=== PATIENT | male | born 1950 | race Caucasian/White ===

== ENCOUNTER → 2018-12-08 | Outpatient (CLI) | payer OTHER ==
[~2018-12-08] MED LIST: ASPIRIN EC81 M1; CRESTOR5 MG; FELODIPINE ER10 MG PO; FELODIPINE ER2.5 MG PO; GLUCOPHAGE XR500 MG PO; K-DUR 20 MEQ T20 MEQ PO; LISINOPRIL40 MG PO; VITAMIN B-12500 MCG PO
[2018-12-08 09:39] LABS: HEMATOCRIT 36.7 % (42.0-52.0); HEMOGLOBIN 12.7 gm/dL (14.0-18.0); MCH 33.5 pg (26.0-34.0); MCHC 34.6 g/dL (28.0-37.0); MCV 96.8 fL (80.0-100.0); PLATELET COUNT 319 thou/uL (150-400); RBC 3.79 mil/uL (4.50-6.00); RDW 16.1 % (10.5-14.5); WBC 6.7 thou/uL (4.0-11.0)
[2018-12-08 09:48] LABS: CALCIUM 9.5 mg/dL (8.5-10.1); CREATININE 1.5 mg/dL (0.7-1.3); POTASSIUM 3.2 mmol/L (3.5-5.1)
[2018-12-08 09:54] LABS: ALBUMIN 3.1 g/dL (3.4-5.0); TOTAL BILIRUBIN 0.9 mg/dL (<0.1-1.0); TOTAL PROTEIN 6.6 g/dL (6.4-8.2)
[2018-12-08 10:10] LABS: ABSOLUTE NEUTROPHILS 4.8 thou/uL (1.4-8.2); ANISOCYTOSIS 1+; PLATELET ESTIMATE NORMAL
[2018-12-08 10:15] VITALS: BP 86/53
[2018-12-08 11:15] VITALS: BP 118/68
--- NOTE | 2018-12-08 15:17 | NUR ---
IN FOR IV FLUIDS FOR DEHYDRATION. PATIENT STATED HAS NOT BEEN EATING OR DRINKING VERY MUCH FOR 3 WEEKS AND HAS LOST 33 POUNDS, PASSED OUT 3 DAYS AGO AT HOME IN THE KITCHEN. DENIED INJURY. BP 86/53 UPON ARRIVAL TO CLINIC. CXR AND LABS DONE PRIOR TO ARRIVAL. INFUSED 1 LITER NS IV WIDE OPEN. SPOKE WITH MAIKEL GODDARD AT DR. JAVIER'S OFFICE TO REPORT K+ LEVEL 3.2, PATIENT'S REPORT OF PASSING OUT AT HOME, AND LOW BP. AFTER INFUSION COMPLETED BP 118/68, TAKEN MANUALLY. MEI GOMEZ, EVALUATOR TRANSFER STUDENTS TO CALL OUT PRESCRIPTION FOR POTASSIUM SUPPLEMENT AND WANTS TO SEE PATIENT IN 1 WEEK OR SOONER IF GETS WORSE. ALL INSTRUCTIONS GIVEN TO PATIENT AND DTR PRASHANT. PATIENT'S DTR STATED SHE IS HELPING HER FATHER WITH MEALS AND WILL CHECK ON HIM FREQUENTLY THIS WEEK. ENCOURAGED PATIENT TO TAKE HIS BP BEFORE TAKING HIS BP MEDS AND TO NOTIFY DRJoe IF BP CONTINUES TO BE LOW, HOLD BP MEDS UNTIL SPEAKING TO STATED UNDERSTANDING. DISMISSED IN STABLE CONDITION.
== END ==
LOC: RAD 09:10
PROVIDERS: Nurse Practitioner
DX: E86.0 Dehydration (principal); R06.02 Shortness of breath; R53.83 Other fatigue; R63.4 Abnormal weight loss; R50.9 Fever, unspecified; R97.20 Elevated prostate specific antigen [PSA]

== ENCOUNTER → 2018-12-29 | Outpatient (CLI) | payer OTHER ==
[~2018-12-29] MED LIST changes: -ASPIRIN EC81 M1; +ASPIRIN EC81 M1 PO; +LISINOPRIL2.5 MG PO
== END ==
LOC: ULTRA 15:33
DX: R92.8 Other abnormal and inconclusive findings on diagnostic imaging of breast (principal); R63.4 Abnormal weight loss; I70.0 Atherosclerosis of aorta; I25.10 Atherosclerotic heart disease of native coronary artery without angina pectoris; N28.1 Cyst of kidney, acquired; E11.9 Type 2 diabetes mellitus without complications; Z87.891 Personal history of nicotine dependence; Z79.84 Long term (current) use of oral hypoglycemic drugs

== ENCOUNTER → 2018-12-29 | Outpatient (CLI) | payer OTHER ==
[~2018-12-29] VITALS: Ht 177.8 cm; Wt 83.9 kg
--- NOTE | 2019-01-01 07:37 | P ---
[facility] [place] [address] [place] [address] PROCEDURE REPORT Name: JESSIE GALAN [facility] [id number] Admission: 12/29/18 ������������������ Attend Phys: Jed Chamorro MD Discharge: ������������������ Date of : 50 Report #: [id number] THIS REPORT FOR: //name// CC: Jed Zapata MD BRIEF HISTORY: The patient is a 68-year-old male for his first average risk screening colonoscopy. PREOPERATIVE DIAGNOSIS: Average risk screening colonoscopy. POSTOPERATIVE DIAGNOSES: 1. Colon polyps. 2. Rectal polyps. 3. Polypoid lesion, anal verge. 4. Moderate diverticulosis coli, right and left colon. MEDICATIONS: Deep sedation with propofol per anesthesia. SPECIMENS: 1. Distal ascending colon polyp. 2. Polyp at 35 cm. 3. Rectal polyp. 4. Biopsies of polypoid lesion, anal verge. ESTIMATED BLOOD LOSS: 3 mL. PROCEDURE: Colonoscopy to cecum and terminal ileum with sterile polypectomy and biopsy. FINDINGS: Prior to propofol sedation, procedure of colonoscopy discussed with the patient as well as potential risks and its complications. He indicates he understands and desires to proceed. With the patient in the left lateral decubitus position, digital examination was completed, which revealed no abnormalities. Subsequently, the Olympus video colonoscope was introduced in the rectum and advanced under direct vision to the cecum. Done with minimal difficulty. The cecum was identified by the ileocecal valve and the appendiceal orifice. I was able to visualize the distal segment of the terminal ileum, which was inspected and noted to be unremarkable. At that point, the scope was slowly withdrawn and careful circumferential views obtained including retroflexing the scope in the ascending colon. Upon slow withdrawal of the scope, the prep was good. The mucosa was within normal limits, normal vascular pattern and normal light reflex. As we withdrew the scope, the mucosa was inspected and was within normal limits, normal vascular pattern and normal light reflex. As we withdrew the scope, he was found to have [facility] [address] [place] [address] PROCEDURE REPORT Name: JESSIE GALAN Room #: REG [facility] [id number] Admission: 12/29/18 ������������������ Attend Phys: Jed Chamorro MD Discharge: ������������������ Date of : 50 Report #: [id number] 4-5 mm sessile polyp in the distal ascending colon that was removed by cold snare polypectomy and recovered. The scope was further withdrawn and a few scattered diverticula were seen in the ascending colon. No additional abnormalities were noted until the left colon was reached. He was noted to have moderate sigmoid diverticular disease. He was also noted to have an 8 mm polyp on a short stalk at 35 cm, was removed by hot snare polypectomy. The scope was further withdrawn. In the rectum, he was found to have a 10 mm bilobed pedunculated polyp removed by snare polypectomy. Upon retroflexion, no abnormalities were noted on retroflexion; however, on inspection of the anal canal at the level of the dentate line, there was a multi-lobed polypoid lesion. This lesion may be anal tags. However, another consideration could be condyloma. Biopsies were obtained. The patient tolerated the procedure well. CONDITION OF THE PATIENT UPON DISCHARGE: Following the procedure, the patient drowsy, he will be discharged home when fully ambulatory INSTRUCTIONS TO THE PATIENT AND FAMILY AT THE TIME OF DISCHARGE: We will follow up on the path and make further recommendations. If the lesions in the anal verge are condyloma, he will require further management by a colorectal surgeon. As far as the colon polyps, we will have him return in 3 years. We will follow up on path and make further recommendations as needed. This is the patient's first colonoscopy. Withdrawal time from cecum was 16 minutes 24 seconds. ��������������������������������������������� <ELECTRONICALLY SIGNED> ���������������������������������������� By: Jed Chamorro MD ��������������������������������������������� 01/01/19 0737 1234 0056 Jed Chamorro MD /nt
--- NOTE | 2019-01-01 12:07 | PATH ---
[facility] [address] [place] [address] PATHOLOGY RPT PROCEDURE Name: HOMAR HAJI Room #: REG CL MTimi.#: [id number] ������������������ Admission: 12/29/18 ������������������ Date of : 50 Discharge: Report #: [id number] Path Case #: [id number] [facility] Accession Number: [id number] . 01 Material submitted: . PART A: DISTAL ASCENDING POLYP PART B: POLYP AT 35CM PART C: RECTAL POLYP PART D: BIOPSY OF ANAL VERGE . 01 Clinical history: . Preop DX: Screening Postop DX: Diverticuli, colon polyps . 02 Diagnosis: A. Polyp, distal ascending polyp, endoscopic biopsy: - Tubular adenoma. - Negative for high grade dysplasia. . B. Polyp, at 35 cm, endoscopic biopsy: - Tubular adenoma. - Negative for high grade dysplasia. . C. Polyp, rectal polyp, endoscopic biopsy: - Tubular adenoma. - Negative for high grade dysplasia. . D. Squamous mucosa, anal verge, endoscopic biopsy: - Papillomatous changes associated with hypergranulosis and hyperkeratosis. - Negative for dysplasia or malignancy. (IUV/db; 12/31/2018) LBQ/12/31/2018 . 02 Electronically signed: . Geena Howell MD, Pathologist NPI- [id number] . 01 Gross description: . A. Received in formalin labeled "Homar Haji, distal ascending polyp," is a segment of rodriguez soft tissue measuring 1.2 x 0.3 x 0.3 cm in greatest dimensions. The specimen is submitted entirely in cassette A1. . B. Received in formalin labeled "Homar Haji, polyp at 35 cm," is a polypoid segment of rodriguez-brown soft tissue measuring 0.7 and 0.5 x 0.5 cm in greatest dimensions. The surgical margin is inked, and the specimen is bisected and submitted entirely in cassette B1. [address] [address] PATHOLOGY RPT PROCEDURE Name: HOMAR HAJI GIGI Room #: REG CLI [facility].#: [id number] ������������������ Admission: 12/29/18 ������������������ Date of : 50 Discharge: Report #: [id number] Path Case #: [id number] . C. Received in formalin labeled "Homar Haji, rectal polyp," is a polypoid segment of brown soft tissue measuring 1.0 x 0.7 x 0.5 cm in greatest dimensions. The surgical margin is inked, and the specimen is bisected and submitted entirely in cassette C1. . D. Received in formalin labeled "Raissa, Homar, BX of anal verge," are six fragments of rodriguez soft tissue measuring 1.0 x 0.8 x 0.3 cm in aggregate dimensions and ranging from 0.3 to 0.5 cm in maximum dimension. The specimen is submitted entirely in cassette D1. (DAC; 12/30/2018) XDC/XDC . 02 Pathologist provided ICD-10: D12.2, D12.6, D12.8, L98.8 . 02 CPT . 809064, 974514, 650677, 630519 Specimen Comment: A courtesy copy of this report has been sent to Specimen Comment: [phone], . Specimen Comment: Report sent to / DR JAVIER Performed at: [address], [place], [place] [id number] MD Lino Rosales MD Phone: [phone] Performed at: [address] [id number] MD Geena Howell MD Phone: [phone]
== END | disposition home or self-care (01) ==
LOC: GI 09:13
DX: Z12.11 Encounter for screening for malignant neoplasm of colon (principal); D12.2 Benign neoplasm of ascending colon; D12.8 Benign neoplasm of rectum; D12.5 Benign neoplasm of sigmoid colon; K62.0 Anal polyp; L98.8 Other specified disorders of the skin and subcutaneous tissue; K57.30 Diverticulosis of large intestine without perforation or abscess without bleeding; I10 Essential (primary) hypertension; E11.9 Type 2 diabetes mellitus without complications; Z98.890 Other specified postprocedural states; Z98.41 Cataract extraction status, right eye; Z98.42 Cataract extraction status, left eye; Z87.891 Personal history of nicotine dependence; Z79.899 Other long term (current) drug therapy; Z79.82 Long term (current) use of aspirin

== ENCOUNTER 2019-07-07 13:12 | Inpatient (IN) | payer OTHER ==
[~2019-07-07] VITALS: Ht 177.8 cm; Wt 79.8 kg
--- NOTE | ~2019-07-07 | EMS ---
[facility] [address] [place] [address] EMS Patient Care Report Name: JESSIE GALAN Room #: 209-P ADM IN M.R.#: [id number] Admission: 07/07/19 ������������������ Attend Phys: Reid Zapata MD Discharge: ������������������ Date of : 50 Report #: [id number] THIS REPORT FOR: //name// Report Transmitted: 07/07/2019 18:16 EMS Care Summary [place], [place]/[facility] Incident [id number] @ 07/07/2019 12:43 Incident Location [address] [place] [address] Patient JESSIE GALAN Male, 68 Years 1950 Patient Address [address] [place], [place] [id number] Patient History Hypertension, Patient Allergies No known allergies, Patient Medications ASA, Lisinopril, Disposition Transported No Lights/[place] Dispatch Reason Unconscious/Fainting Transported To [facility] Narrative Arrived on scene for a 68 y/o male that lying on a neighbors legs in the back yard. Neighbors said that they found the pt lying on the ground and when they tried to help him up, he passed out on them. They tried a couple of times and both time, he passed out. That is when they decided to call us. Pt said that he was tripped by the dog and fell to the ground and was unable to get himself up. Pt said that he has been outside for about an hour or so. Pt said that he does drink and usually drinks too much, but has nothing to drink this morning. [facility] [address] [place] [address] EMS Patient Care Report Name: JESSIE GALAN Room #: 209-P ADM IN M.R.#: [id number] Admission: 07/07/19 ������������������ Attend Phys: Reid Zapata MD Discharge: ������������������ Date of : 50 Report #: [id number] Pt smells of alcohol. Checked BS and it was in normal range. See Pt Assessment. Fall, Syncope when sitting and standing. See Flow Chart. Pt is wanting to refuse treatment. When we helped the Pt get to his feet from the sitting position, he passed out for a few seconds. Took a BP right when we placed him on the cot and it was low. Told the Pt that he is unable to refuse and that he needs to go to the hospital due to him passing out on us when we stood him up. Pt understood and decided to go to the hospital. Transported non-emergent with zero change or incidents. Moved Pt from the cot to the hospital bed via cot sheet. Transferred care to receiving facility. Initial Vitals @12:55P: 121,R: 20,BP: 116/68,Pain: 0/10,GCS: 15,Revised Trauma: 12, @12:50P: 75,R: 20,BP: 126/114,Pain: 0/10,GCS: 15,Glucose: 114,SpO2: 96,Revised Trauma: 12, @13:04P: 109,R: 20,BP: 99/63,Pain: 0/10,GCS: 15,CO: 1,SpO2: 95,Revised Trauma: 12, Assessments @12:48MENTAL:Person Oriented,Time Oriented,Event Oriented,Place Oriented,SKIN:HEENT:Head/Face: No Abnormalities,Eyes: No Abnormalities,Neck/Airway: No Abnormalities,LUNG SOUNDS:General: No Abnormalities,Left Upper: No Abnormalities,Right Upper: No Abnormalities,Left Lower: No Abnormalities,Right Lower: No Abnormalities,ABDOMEN:General: No Abnormalities,Left Upper: No Abnormalities,Right Upper: No Abnormalities,Left Lower: No Abnormalities,Right Lower: No Abnormalities,PELVIS//GI:No Abnormalities,EXTREMITIES:Left Arm: Other,Right Arm: Other,Left Leg: No Abnormalities,Right Leg: No Abnormalities,PULSE:Radial: 2+ Normal,NEURO:Other, Impression Dehydration Procedures @12:48ALS AssessmentResponse: UnchangedSucceeded@12:54Normal Saline (.9% NaCl) 600cc (18 ga) Site: Hand-LeftResponse: UnchangedSucceeded@12:523-Lead ECGResponse: UnchangedSucceeded Timeline 12:41,Call Received 12:41,Dispatch Notified 12:43,Dispatched 12:43,En Route 12:46,[place] [address] EMS Patient Care Report Name: JESSIE GALAN Room #: 209-P ADM IN M.R.#: [id number] Admission: 07/07/19 ������������������ Attend Phys: Reid Zapata MD Discharge: ������������������ Date of : 50 Report #: [id number] 12:48,At Patient 12:48,ALS Assessment,Response: UnchangedSucceeded, 12:50,BP: 126/114 M,PULSE: 75,RR: 20 R,SPO2: 96 Ox,ETCO2: ,B,PAIN: 0,GCS: 15, 12:52,3-Lead ECG,Response: UnchangedSucceeded, 12:54,Normal Saline (.9% NaCl) 600cc 18 ga Site: Hand-Left,Response: UnchangedSucceeded, 12:55,BP: 116/68 M,PULSE: 121,RR: 20 R,SPO2: Ox,ETCO2: ,BG: ,PAIN: 0,GCS: 15, 12:58,Depart Scene 13:04,BP: 99/63 M,PULSE: 109,RR: 20 R,SPO2: 95 Ox,ETCO2: ,BG: ,PAIN: 0,GCS: 15, 13:06,At Destination 13:33,Call Closed Disclaimer v1.1 Copyright 2019 [employer] This EMS Care Summary contains data elements from the applicable legal record (which may be displayed differently). It is designed to provide pertinent information for the following purposes: continuity of care, clinical quality, and state data reporting. The complete legal record is available to ED staff and administrators of the receiving hospital in ES's Patient Tracker. All data is provided "as is."
[2019-07-07 13:12] VITALS: BP 114/60
[2019-07-07 13:43] LABS: ABSOLUTE NEUTROPHILS 4.6 thou/uL (1.4-8.2); BASOPHILS 0.6 % (0.0-2.0); EOSINOPHILS 0.2 % (0.0-3.0); HEMATOCRIT 36.6 % (42.0-52.0); HEMOGLOBIN 12.3 gm/dL (14.0-18.0); MCH 33.7 pg (26.0-34.0); MCHC 33.5 g/dL (28.0-37.0); MCV 100.7 fL (80.0-100.0); MONOCYTES 9.5 % (1.0-8.0); PLATELET COUNT 115 thou/uL (150-400); POLYS 83.7 % (36.0-66.0); RBC 3.64 mil/uL (4.50-6.00); WBC 5.5 thou/uL (4.0-11.0)
[2019-07-07 13:49] LABS: ANION GAP 26 mmol/L (7-16); BUN 22 mg/dL (7-18); CALCIUM 8.3 mg/dL (8.5-10.1); CHLORIDE 98 mmol/L (98-107); CO2 13 mmol/L (21-32); CREATININE 1.5 mg/dL (0.7-1.3); GLUCOSE 100 mg/dL (74-106); POTASSIUM 3.7 mmol/L (3.5-5.1); SODIUM 137 mmol/L (136-145)
[2019-07-07 13:59] LABS: ALBUMIN 2.8 g/dL (3.4-5.0); SGOT 172 U/L (15-37); SGPT 48 U/L (30-65); TOTAL BILIRUBIN 1.9 mg/dL (<0.1-1.0); TOTAL PROTEIN 6.1 g/dL (6.4-8.2); TROPONIN-I <0.06 ng/mL (<0.06)
--- NOTE | 2019-07-07 14:30 | EKG ---
[address] [place] [address] ELECTROCARDIOGRAM REPORT Name: JESSIE GALAN [facility] #: [id number] ������������������ Admission: 07/07/19 ������������������ Attend Phys: Discharge: ������������������ Date of : 50 Report #: [id number] ����������������������������������������������������������������� [id number] THIS REPORT FOR: //name// [facility] ED Test Date: 2019-07-07 Test Time: 13:24:18 Pat Name: JESSIE GALAN Department: Room: [facility]: Pulper [facility] 1950 Requested By: Sonia Buchanan Order Number: [id number] MD: Kirk Coronado Measurements Intervals [place] Rate: 101 P: 55 ND: 145 QRS: 31 QRSD: 97 T: -8 QT: 356 QTc: 462 Interpretive Statements Sinus tachycardia Compared to ECG 02/27/2013 08:44:26 Sinus rhythm no longer present Electronically Signed On 07-07-2019 14:30:40 CDT by Kirk Coronado [email or web address] ��������������������������������������������� <ELECTRONICALLY SIGNED> ���������������������������������������� By: Kirk Coronado MD ��������������������������������������������� 07/07/19 1430 1324 1324 Kirk Coronado MD /FAITH
[2019-07-07 15:29] LABS: URINE BILIRUBIN NEGATIVE (Negative); URINE BLOOD 1+ (Negative); URINE CLARITY CLEAR; URINE COLOR YELLOW; URINE GLUCOSE-RANDOM* NEGATIVE (Negative); URINE KETONES TRACE (Negative); URINE LEUKOCYTES-REFLEX NEGATIVE (Negative); URINE NITRITE-REFLEX NEGATIVE (Negative); URINE PROTEIN (DIPSTICK) TRACE (Negative); URINE SPECIFIC GRAVITY <= 1.005 (1.005-1.035)
[2019-07-07 15:41] LABS: BACTERIA-REFLEX None Seen /HPF (None Seen); CASTS None Seen /LPF (None Seen); CRYSTALS None Seen /LPF (None Seen); SQUAMOUS 0-3 Few /LPF (0-3); URINE WBC-REFLEX 0-5 Rare /HPF (0-5)
[2019-07-07 17:15] VITALS: BP 149/88
--- NOTE | 2019-07-07 17:44 | NUR ---
REC PT APPROX 1745, A&0X4, FORGETFUL, CLOSE SBA D/T HX FALLS AND REASO FOR ADMISSION. CARDIAC MONITORED.SCRATCHES ON RIGHT SIDE AND RIGHT KNEE. HE RECENTLY ACQUIRED A LARGE DOG WHO'S SCRATCHING ON HIM. WILL DO ADMISSION. ASKED PHYSICIAN FOR DIET, WILL ENTER. ENCOURAGED PT TO CALL FOR ORDER. ENCOURAGED PT TO USE CALL LIGHT FOR ANY NEEDS
[2019-07-07 17:45] VITALS: BP 156/85
[2019-07-07 18:29] LABS: MAGNESIUM 1.3 mg/dL (1.8-2.4); PHOSPHORUS 2.9 mg/dL (2.5-4.9)
--- NOTE | 2019-07-07 19:21 | NUR ---
FAXED FACE SHEET TO [phone] FOR PSYCHE CONSULT AND LVM W/DETAILS AND OUR PHONE NUMBER, DAY AND NIGHT NURSE NAME
[2019-07-07 19:26] LABS: FOLIC ACID 99.4 ng/mL (8.6-58.9)
[2019-07-07 20:00] VITALS: BP 140/66
[2019-07-07 20:20] LABS: AMP/METHAMP Negative (Negative); BARBITURATES Negative (Negative); BENZODIAZEPINES Negative (Negative); COCAINE Negative (Negative); METHADONE Negative (Negative); OPIATES Negative (Negative); PCP Negative (Negative)
[2019-07-08 04:30] VITALS: BP 161/80
[2019-07-08 08:05] VITALS: BP 168/82
[2019-07-08 10:37] LABS: ALBUMIN 2.7 g/dL (3.4-5.0); CALCIUM 7.8 mg/dL (8.5-10.1); CREATININE 0.9 mg/dL (0.7-1.3); MAGNESIUM 1.2 mg/dL (1.8-2.4); POTASSIUM 3.3 mmol/L (3.5-5.1); TOTAL BILIRUBIN 1.8 mg/dL (<0.1-1.0); TOTAL PROTEIN 6.1 g/dL (6.4-8.2)
[2019-07-08 12:30] VITALS: BP 136/83
--- NOTE | 2019-07-08 13:09 | NUR ---
ASSUMED CARE AT SHIFT CHNAGE. DENIES ANY DISCOMFORT. BP ELRVATED, BP MEDS GIVEN AND BP 140/87. PROGRESSING TOWARDS GOAL AND WILL CONTINUE WITH POC.
[2019-07-08 14:04] LABS: CALCIUM 7.5 mg/dL (8.5-10.1); CREATININE 0.9 mg/dL (0.7-1.3); MAGNESIUM 1.2 mg/dL (1.8-2.4); POTASSIUM 3.3 mmol/L (3.5-5.1)
[2019-07-08 15:08] VITALS: BP 161/88
[2019-07-08 20:40] VITALS: BP 139/72
[2019-07-09 04:05] VITALS: BP 136/74
[2019-07-09 07:31] VITALS: BP 133/64
--- NOTE | 2019-07-09 08:09 | NUR ---
PT RESTING QUIETLY IN ROOM THRU THE NOC, NO C/O PAIN, VSS, WILL CON'T TO MONITOR PER PPOC.
[2019-07-09 09:15] LABS: CALCIUM 8.6 mg/dL (8.5-10.1); POTASSIUM 3.7 mmol/L (3.5-5.1)
--- NOTE | 2019-07-09 10:22 | NUR ---
ASSUMED CARE AT SHIFT CHANGE, ALERT AND ORIENTED X4. DENIES ANY CP OR DISCOMFORT.UP WALKING WITH ALEX. PLAN IS TO D/C HOME TODAY.
[2019-07-09 12:05] VITALS: BP 130/70
[2019-07-09 12:34] VITALS: BP 130/70
--- NOTE | 2019-07-09 12:53 | NUR ---
Planning Consultant visited with the pt at bedside. He is dcing home today. Ethol tx/resources offered. Pt declined info and indicates that he has had periods of sobriety when he decides to quit. He quit smoking 2 packs a day without help. He denies any dc needs or concerns. His ride is on their way to take him home. No other cm interventions indicated at this time.
== END 2019-07-09 13:15 | disposition home or self-care (01) | DRG 640 ==
LOC: ER 13:12 → EROBS 16:42 → 2N 16:42
PROVIDERS: Emergency Medicine Emergency Medical Services; Nurse Practitioner Family; ADMIT Family Medicine
DX: E87.6 Hypokalemia (principal); N17.0 Acute kidney failure with tubular necrosis; E87.2 Acidosis; K70.10 Alcoholic hepatitis without ascites; I95.1 Orthostatic hypotension; Y90.9 Presence of alcohol in blood, level not specified; D69.6 Thrombocytopenia, unspecified; F10.10 Alcohol abuse, uncomplicated; Z60.2 Problems related to living alone; E11.9 Type 2 diabetes mellitus without complications; I10 Essential (primary) hypertension; Z98.42 Cataract extraction status, left eye; Z98.41 Cataract extraction status, right eye; Z87.891 Personal history of nicotine dependence
CPT/HCPCS: 10081

== ENCOUNTER → 2020-05-19 | Outpatient (CLI) | payer OTHER | LOC: CAT 11:34 | PROVIDERS: ATTEND Family Medicine | DX: Z13.6 Encounter for screening for cardiovascular disorders (principal); I25.10 Atherosclerotic heart disease of native coronary artery without angina pectoris; E78.00 Pure hypercholesterolemia, unspecified ==

== ENCOUNTER → 2020-06-28 | Outpatient (CLI) | payer OTHER | LOC: SJCVCIMAG 05-26 14:14 | PROVIDERS: ATTEND Internal Medicine Cardiovascular Disease | DX: I08.3 Combined rheumatic disorders of mitral, aortic and tricuspid valves (principal); I11.9 Hypertensive heart disease without heart failure; E78.00 Pure hypercholesterolemia, unspecified; E11.9 Type 2 diabetes mellitus without complications; Z87.891 Personal history of nicotine dependence ==

== ENCOUNTER 2021-07-20 21:20 | Inpatient (IN) | payer OTHER ==
[~2021-07-20] VITALS: Ht 180.3 cm; Wt 79.4 kg
[2021-07-20 21:48] VITALS: BP 108/75
--- NOTE | 2021-07-20 21:57 | NUR ---
WHILE TRIAGING PT PT CLOSED EYES AND BEGAN TO BREATHE HEAVILY. PT OPENED EYES TO VOICE AND WHEN ASKED IF HE FELT OK PT STATING IM OK IM OK. APROX 1-2 MIN LATER PT BEGAN HAVING SEIZURE LIKE ACTIVITY AND PASSED OUT FALLING TO RIGHT SIDE IN TRIAGE. PT OPENED EYES SHORTLY AND SAT UP THEN 15 SEC LATER PT BEGAN APNIC BREATHING AND LOST CONSCIOUNESS.PROVIDER CALLED TO TRIAGE SECURITY AND STAFF PLACED PT ON STRETCHER AND PT MOVED TO ER ROOM FOR MONITORING.
[2021-07-20 22:13] LABS: ABSOLUTE NEUTROPHILS 7.1 thou/uL (1.4-8.2); BASOPHILS 0.8 % (0.0-2.0); EOSINOPHILS 0.7 % (0.0-3.0); HEMATOCRIT 41.3 % (42.0-52.0); LYMPHOCYTES 9.1 % (24.0-44.0); MCH 34.8 pg (26.0-34.0); MCHC 33.9 g/dL (28.0-37.0); MCV 102.5 fL (80.0-100.0); MONOCYTES 5.5 % (1.0-8.0); PLATELET COUNT 137 thou/uL (150-400); POLYS 83.9 % (36.0-66.0); RBC 4.03 mil/uL (4.50-6.00); RDW 14.5 % (10.5-14.5); WBC 8.4 thou/uL (4.0-11.0)
[2021-07-20 22:22] LABS: CALCIUM 8.6 mg/dL (8.5-10.1); CREATININE 1.5 mg/dL (0.7-1.3); POTASSIUM 3.9 mmol/L (3.5-5.1)
[2021-07-21] MEDS ORDERED: IBUPROFEN 600600 M1 PO (00:41)
--- NOTE | 2021-07-21 08:09 | EKG ---
[place] [address] [address] [facility] [place] [address] ELECTROCARDIOGRAM REPORT Name: JESSIE GALAN Room #: 170-9 ADM IN M.R.#: [id number] Admission: 07/21/21 Attend Phys: Reid Zapata MD Discharge: Date of : 50 Report #: [id number] [facility] ED Test Date: 2021-07-20 Test Time: 21:58:43 Pat Name: JESSIE GALAN Department: Room: 170 Gender: M Computer Systems Security Administrator: LAZARA : 1950 Requested By: Amado Simon Order Number: [id number] MD: Quincy Goodman Measurements Intervals [place] Rate: 89 P: 54 OK: 158 QRS: 43 QRSD: 97 T: 5 QT: 353 QTc: 430 Interpretive Statements Sinus rhythm Probable left atrial enlargement Abnormal inferior Q waves Compared to ECG 07/07/2019 13:24:18 Inferior Q waves now present Q waves now present Sinus tachycardia no longer present Electronically Signed On 07-21-2021 8:09:38 CDT by Quincy Goodman [email or web address] <ELECTRONICALLY SIGNED> By: Quincy Goodman MD, [facility] 07/21/21808 57 57 Quincy Goodman MD, [facility] /EPI
--- NOTE | 2021-07-21 17:05 | NUR ---
SPOKE WITH DR PHELAN IN RADIOLOGY ABOUT ARTERIOGRAM REQUESTED BY ORTHO. DR PHELAN STATES THAT THERE IS NO NEED FOR AN EMERGENT ARTERIOGRAM AT THIS TIME AND TO CONTINUE TO MONITOR THE STATUS OF THE BRUISE CHECKING RADIAL AND ULNAR PULSES ALONG WITH CAPILLARY REFILL. IF THE HEMATOMA CONTINUES TO GROW OR PULSES DEMINISH TO CONSULT DR ARIZMENDI AT IR
[2021-07-21 18:45] VITALS: BP 179/98
[2021-07-21 19:01] VITALS: BP 177/83
[2021-07-21 19:30] VITALS: BP 165/104
[2021-07-21] MEDS ORDERED: LIPITOR 20 MG T20 M1 PO (19:45)
[2021-07-22 00:34] VITALS: BP 144/98
--- NOTE | 2021-07-22 02:20 | NUR ---
PT ARRIVED TO UNIT APPROX 1930, CONSENTS OBTAINED, ADMISSION PACKET PROVIDED, MEDICATIONS RECONCILED, PHARMACY ENTERED. PT AOX4, REPORTS 3/10 LEFT THUMB. PT DENIES SOB WHILE ON ROOM AIR. PT TOLERATING PO INTAKE OF FLUIDS AND CLEAR LIQUID DIET WITHOUT ISSUE. PT WITHOUT NAUSEA OR EMESIS. PT NOTED TO HAVE WORSENING HICCUPS/REFLUX. NOTIFIED ATTENDING PROVIDER, RECEIVED ORDERS FOR SCHEDULED PO PROTONIX DAILY, PRN PO MYLANTA Q4HR, AND LOW DOSE SLIDING SCALE INSULIN. PT VOIDING PER URINAL. PT RESTING IN BED THROUGHOUT SHIFT, FREQUENT REPOSITIONING ENCOURAGED, PT NOTED TO SHIFT INDEPENDENTLY, SLIGHT WEAKNESS NOTED WITH TRANSFERRING. TREMORS NOTED TO BUE. PT REPORTS NUMBNESS IN LEFT HAND AND BILATERAL FEET, CAPILLARY REFILL LESS THAN 3SEC, PERIPHERAL PULSES PALPABLE IN ALL EXTREMITIES. ABRASIONS NOTED THROUGHOUT BODY, LUE WITH STITCHES AND ACEWRAP IN PLACE WITHOUT DRAINAGE NOTED. PT ENCOURAGED TO NOTIFY STAFF FOR ALL NEEDS, CALL LIGHT WITHIN REACH, BED ALARM ON, BED LOCKED IN LOWEST POSITION, FREQUENT MONITORING WILL CONTINUE.
[2021-07-22 04:28] VITALS: BP 139/96
[2021-07-22 07:35] VITALS: BP 153/98
[2021-07-22] MEDS ORDERED: PREDNISONE 10 M10 MG PO (08:27)
[2021-07-22 08:49] VITALS: BP 153/98
--- NOTE | 2021-07-22 10:39 | NUR ---
Assumed pt care at 7am.Pt in bed resting and waiting for breakfast. Assessment completed.vss but elevated bp noted. Am meds given with breakfast and well tolerated.Dr Zapata here,dc order noted. Pt informed and he called his dtr for ride home.Dc summarey compile and reviewed with pt. Flu shot given and info sheet provided including flu shot wallet card.Pt will dc home with dtr after lunch. No verbal c/o, will continue to monitor.
== END 2021-07-22 12:50 | disposition home or self-care (01) | DRG 605 ==
LOC: ER 21:20 → EROBS 07-21 01:34 → 2N 07-21 19:18
PROVIDERS: Emergency Medicine; ADMIT Family Medicine; ATTEND Family Medicine
PROC: 0HQCXZZ Repair Left Upper Arm Skin, External Approach (ICD-10-PCS; principal; 2021-07-21)
DX: S41.112A Laceration without foreign body of left upper arm, initial encounter (principal); S44.12 Injury of median nerve at upper arm level, left arm; M48.02 Spinal stenosis, cervical region; F10.129 Alcohol abuse with intoxication, unspecified; Z20.822 Contact with and (suspected) exposure to COVID-19; E11.9 Type 2 diabetes mellitus without complications; K08.409 Partial loss of teeth, unspecified cause, unspecified class; R20.2 Paresthesia of skin; I10 Essential (primary) hypertension; Z98.42 Cataract extraction status, left eye; Z98.41 Cataract extraction status, right eye; Z87.891 Personal history of nicotine dependence; Z79.899 Other long term (current) drug therapy; W18.39XA Other fall on same level, initial encounter; Y93.89 Activity, other specified; Y92.098 Other place in other non-institutional residence as the place of occurrence of the external cause; Y99.8 Other external cause status
CPT/HCPCS: 10081